=== PATIENT | female | born 1960 | race Caucasian/White ===

== ENCOUNTER 2019-01-12 05:50 | Emergency (ER) ==
[~2019-01-12] VITALS: Ht 157.5 cm; Wt 63.6 kg
[2019-01-12 05:55] VITALS: BP 135/71
[2019-01-12] MEDS ORDERED: AMOX-422 PO (06:25)
[2019-01-12] MEDS ORDERED: NEOM10DR45 LEFT EAR (06:25)
== END 2019-01-12 06:37 | disposition home or self-care (01) ==
LOC: ER 05:51
DX: H66.92 Otitis media, unspecified, left ear (principal); H60.92 Unspecified otitis externa, left ear; Z79.2 Long term (current) use of antibiotics
CPT/HCPCS: 99283

== ENCOUNTER 2022-05-14 13:32 | Observation (INO) | payer MEDICARE, MEDICAID ==
[~2022-05-14] VITALS: Ht 160 cm; Wt 65.9 kg
[~2022-05-14 13:32] MED LIST: NEOM10DR45 LEFT EAR
[2022-05-14 14:17] LABS: BASOPHILS % (AUTO) 0.8 % (0-1); EOSINOPHILS # (AUTO) 0.2 X10'3 (0-0.9); EOSINOPHILS % (AUTO) 3.1 % (0-6); HEMATOCRIT 41.1 % (35.0-45.0); HEMOGLOBIN 13.5 g/dl (12.0-16.0); LYMPHOCYTES # (AUTO) 1.7 X10'3 (1.1-4.8); LYMPHOCYTES % (AUTO) 32.3 % (21-51); MEAN CORPUSCULAR HEMOGLOBIN 30.1 PG (27.0-31.0); MEAN CORPUSCULAR HGB CONC 32.7 g/dL (33.0-36.5); MEAN CORPUSCULAR VOLUME 91.9 FL (78-98); MEAN PLATELET VOLUME 8.4 FL (7.4-10.4); MONOCYTES # (AUTO) 0.4 X10'3 (0-0.9); MONOCYTES % (AUTO) 7.6 % (2-12); NEUTROPHILS # (AUTO) 2.9 X10'3 (1.8-7.7); NEUTROPHILS % (AUTO) 56.2 % (42-75); PLATELET COUNT 219 X10'3 (140-440); RED BLOOD COUNT 4.47 X10'6 (4.20-5.60); RED CELL DISTRIBUTION WIDTH 13.7 % (11.5-14.5); WHITE BLOOD COUNT 5.2 X10'3 (4.5-11.0)
[2022-05-14 14:38] LABS: ALANINE AMINOTRANSFERASE 26 U/L (12-78); ALBUMIN 3.9 G/DL (3.4-5.0); ALKALINE PHOSPHATASE 131 IU/L (46-116); ANION GAP 10 (8-16); ASPARTATE AMINO TRANSFERASE 22 U/L (10-37); BILIRUBIN,TOTAL 0.2 MG/DL (0.1-1.0); BLOOD UREA NITROGEN 14 MG/DL (7-18); BUN/CREATININE RATIO 17.3 (6.6-38.0); CALCIUM 8.8 MG/DL (8.5-10.1); CHLORIDE 106 MMOL/L (99-107); CREATININE 0.81 MG/DL (0.40-0.90); GLUCOSE 115 MG/DL (70-104); POTASSIUM 3.6 MMOL/L (3.5-5.1); SODIUM 142 MMOL/L (135-145); TOTAL CARBON DIOXIDE 26.3 MMOL/L (24-32); TOTAL PROTEIN 7.8 G/DL (6.4-8.2); eGFR 71 ML/MIN
[2022-05-14] MEDS ORDERED: aspirin 81mg tab.chew PO ONE (16:45)
[2022-05-14] MEDS ORDERED: metoprolol tartrate 25mg tablet PO ONE (16:45)
[2022-05-14] MEDS ORDERED: NO HOME MEDS (16:56)
[2022-05-14] MEDS ORDERED: magnesium Cl slow-release 64mg tablet PO PRN (18:00)
[2022-05-14] MEDS ORDERED: acetaminophen 650mg rectal suppository RC PRN (18:00)
[2022-05-14] MEDS ORDERED: mag hydrox/Alum hydrox/simeth 30ml oral suspension PO PRN (18:00)
[2022-05-14] MEDS ORDERED: PERFLUTREN PROTEIN-A MICROSPHR (Optison) 0.22 MG/ML 3ML VIAL IV ONE (18:00)
[2022-05-14] MEDS ORDERED: normal saline 1000ml 1,000 ML IV SCH (18:00)
[2022-05-14] MEDS ORDERED: magnesium 4gm in 100ml NS 100 ML IV PRN (18:00)
[2022-05-14] MEDS ORDERED: acetaminophen 325mg tablet PO PRN ×2 (18:00)
[2022-05-14] MEDS ORDERED: potassium Cl 20 mEq SR tablet PO PRN ×2 (18:00)
[2022-05-14] MEDS ORDERED: bisacodyl 10mg suppository rectal RC PRN (18:00)
[2022-05-14] MEDS ORDERED: magnesium hydroxide 30ml (MOM) UD suspension PO PRN (18:00)
[2022-05-14] MEDS ORDERED: potassium Cl 40MEQ/1/2NS 520ml 520 ML IV PRN (18:00)
[2022-05-14] MEDS ORDERED: ondansetron/PF 4mg/2ml inj IV PRN (18:00)
[2022-05-14] MEDS ORDERED: diphenhydrAMINE 25mg capsule PO PRN (18:00)
[2022-05-14 18:38] LABS: CLARITY,URINE SLIGHTLY CLOUDY (Clear); COLOR,URINE STRAW (Yellow); GLUCOSE, URINE NEGATIVE (Neg); KETONES,URINE NEGATIVE (Neg); LEUKOCYTE ESTERASE ,URINE TRACE (Neg); NITRITES, URINE NEGATIVE (Neg); OCCULT BLOOD,URINE TRACE-INTACT (Neg); PROTEIN,URINE NEGATIVE (Neg); UROBILINOGEN,URINE 0.2 E.U/dL (0.2-1.0)
[2022-05-14 18:40] LABS: HEMOGLOBIN A1C 5.5 % (4.5-6.2)
[2022-05-14 18:44] LABS: UA COLLECTION TYPE NON-SPECIFIED
[2022-05-14 18:46] LABS: BACTERIA,URINE FEW /HPF (Neg); RBC,URINE 0-2 /HPF (0-2); SQUAMOUS EPITHELIAL CELL,UR FEW /LPF (FEW)
[2022-05-14 18:47] LABS: MUCUS STRANDS FEW /LPF (Neg)
[2022-05-14 18:56] LABS: D-DIMER 0.47 MG/L FEU (0-0.50)
[2022-05-14] MEDS: metoprolol tartrate 25mg tablet PO SCH (19:13)
[2022-05-14] MEDS: K and/or MAG REPLACEMENT MC SCH (19:13)
--- NOTE | 2022-05-14 19:15 | NUR ---
Consulted Dr Mooney regarding patient bradycardia following administration of Metoprolol. Patient asymptomatic with HR ranging from 40-[address] Mooney at bedside, advised to hold additional Metoprolol order tonight.
[2022-05-14] MEDS: docusate sod 100mg capsule PO SCH (20:00)
[2022-05-14] MEDS: heparin, porcine 5000 units/ml vial SQ SCH (20:00)
[2022-05-14] MEDS: CefTRIAXone/D5W-Rocephin 1gm 50 ML IV SCH (22:45)
[2022-05-14 23:42] VITALS: BP 186/62
[2022-05-15] VITALS (11 sets, daily range): BP systolic 113–163; BP diastolic 55–85
--- NOTE | 2022-05-15 06:37 | NUR ---
Patient in room PCU 3016. I have received report from Celest[place] and had the opportunity to ask questions and assume patient care.
[2022-05-15 07:06] LABS: BASOPHILS % (AUTO) 0.8 % (0-1); EOSINOPHILS # (AUTO) 0.2 X10'3 (0-0.9); EOSINOPHILS % (AUTO) 5.1 % (0-6); HEMATOCRIT 36.4 % (35.0-45.0); HEMOGLOBIN 12.1 g/dl (12.0-16.0); LYMPHOCYTES # (AUTO) 1.6 X10'3 (1.1-4.8); MEAN CORPUSCULAR HEMOGLOBIN 30.5 PG (27.0-31.0); MEAN CORPUSCULAR HGB CONC 33.3 g/dL (33.0-36.5); MEAN CORPUSCULAR VOLUME 91.6 FL (78-98); MEAN PLATELET VOLUME 8.6 FL (7.4-10.4); MONOCYTES # (AUTO) 0.4 X10'3 (0-0.9); MONOCYTES % (AUTO) 9.1 % (2-12); NEUTROPHILS # (AUTO) 2.3 X10'3 (1.8-7.7); PLATELET COUNT 202 X10'3 (140-440); RED BLOOD COUNT 3.97 X10'6 (4.20-5.60); RED CELL DISTRIBUTION WIDTH 13.7 % (11.5-14.5); WHITE BLOOD COUNT 4.7 X10'3 (4.5-11.0)
[2022-05-15] MEDS: K and/or MAG REPLACEMENT MC SCH (07:07)
[2022-05-15] MEDS: CefTRIAXone/D5W-Rocephin 1gm 50 ML IV SCH (07:58)
[2022-05-15] MEDS: docusate sod 100mg capsule PO SCH (07:59)
[2022-05-15] MEDS ORDERED: aspirin 81mg, enteric-coated 1 TAB TABLET.DR PO SCH (08:00)
[2022-05-15] MEDS ORDERED: lisinopril 10 MG tablet PO SCH (08:00)
[2022-05-15] MEDS ORDERED: atorvastatin 20mg tablet PO SCH (08:00)
[2022-05-15] MEDS: heparin, porcine 5000 units/ml vial SQ SCH (08:00)
[2022-05-15] MEDS: metoprolol tartrate 25mg tablet PO SCH (08:03)
[2022-05-15 08:09] LABS: ALANINE AMINOTRANSFERASE 19 U/L (12-78); ALBUMIN 3.1 G/DL (3.4-5.0); ALBUMIN/GLOBULIN RATIO 0.9 (1.1-1.5); ALKALINE PHOSPHATASE 83 IU/L (46-116); ANION GAP 12 (8-16); ASPARTATE AMINO TRANSFERASE 21 U/L (10-37); BILIRUBIN,TOTAL 0.3 MG/DL (0.1-1.0); BLOOD UREA NITROGEN 14 MG/DL (7-18); BUN/CREATININE RATIO 14.3 (6.6-38.0); CALCIUM 8.4 MG/DL (8.5-10.1); CHLORIDE 106 MMOL/L (99-107); CHOL/HDL RATIO 3.3 (0.00-4.99); CHOLESTEROL 218 MG/DL (0-200); CREATININE 0.98 MG/DL (0.40-0.90); GLUCOSE 145 MG/DL (70-104); HDL CHOLESTEROL 66 MG/DL (35-60); LDL CHOLESTEROL 109 MG/DL (50-100); MAGNESIUM 1.8 MG/DL (1.5-2.4); PHOSPHORUS 3.7 MG/DL (2.3-4.5); POTASSIUM 3.8 MMOL/L (3.5-5.1); SODIUM 141 MMOL/L (135-145); TOTAL CARBON DIOXIDE 23.2 MMOL/L (24-32); TOTAL PROTEIN 6.4 G/DL (6.4-8.2); TRIGLYCERIDES 214 MG/DL (20-135); eGFR 57 ML/MIN
[2022-05-15] MEDS ORDERED: nitroGLYCERIN 0.4mg SUBLingual tab SL PRN (08:50)
[2022-05-15] MEDS ORDERED: regadenoson 0.4mg/5ml syringe IV PRN (08:50)
[2022-05-15] MEDS ORDERED: metoprolol tartrate 1mg/ml inj IV PRN (08:50)
[2022-05-15] MEDS ORDERED: aminophylline 250mg/10ml inj. IV PRN (08:50)
[2022-05-15] MEDS ORDERED: ATOR20TA66 PO (13:08)
[2022-05-15] MEDS ORDERED: LACT1CAP26 PO (13:08)
[2022-05-15] MEDS ORDERED: ASPI-1071 PO (13:08)
[2022-05-15] MEDS ORDERED: AMLO5TAB4 PO (13:08)
[2022-05-15] MEDS ORDERED: CEFD300C3 PO (13:08)
[2022-05-15] MEDS ORDERED: CHLO25TA11 PO (13:08)
--- NOTE | 2022-05-15 13:45 | NUR ---
Message: Ayanna Dailey in [id number] would like to speak with you before she is discharged. She just has some questions and doesnt really know anything about her condition. -[place] [id number]
== END 2022-05-15 14:46 | disposition home or self-care (01) ==
LOC: ER 13:32 → ED HOLD 18:01 → PCU 3S 23:30
PROVIDERS: ADMIT Family Medicine; ATTEND Family Medicine
DX: R07.89 Other chest pain (principal); I10 Essential (primary) hypertension; N39.0 Urinary tract infection, site not specified; I25.2 Old myocardial infarction; Z79.899 Other long term (current) drug therapy
CPT/HCPCS: 36415; 71045; 78452; 80053; 80061; 81001; 83036; 83735; 83880; 84100; 84443; 84484; 85025; 85379; 87077; 87081; 87088; 87186; 93005; 93017; 93306; 96361; 96365; 96366; 96372; 99285; A9500; G0378; J0696; J1644; J2785; J7030